=== PATIENT | female | born 1970 | race Caucasian/White ===

== ENCOUNTER → 2019-10-06 | Outpatient (CLI) | payer SELFPAY | END | disposition home or self-care (01) | LOC: LABWHC1 10:07 | PROVIDERS: ATTEND Internal Medicine Interventional Cardiology | DX: Z11.59 Encounter for screening for other viral diseases (principal) | CPT/HCPCS: 87635 ==

== ENCOUNTER → 2019-10-11 | Day surgery (SDC) | payer SELFPAY ==
[2019-10-10 10:08] VITALS: BMI 57.4
[~2019-10-11] MED LIST: ALPRAZolam 0.25 MG TAB PO PRN; ALPRAZolam 0.5 MG TAB PO PRN; ASPIRIN 325 MG TAB PO ONE; ATORVASTATIN 80 MG TAB PO ONE; FUROSEMIDE 40 MG TAB PO SCH; IOPAMIDOL-370 125ML BTL INJ ONE; LIDOCAINE 1% INJ 10MG/ML (20 ML MDV) SQ ONE; LOSARTAN 50 MG TAB PO SCH; METOPROLOL TARTRATE 50 MG TAB PO SCH; MIDAZOLAM 2 MG/2 ML VIAL IVP ONE; NITROGLYCERIN SL TABS 0.4 MG TAB SUBLINGUAL ONE; NITROGLYCERIN SL TABS 0.4 MG TAB SUBLINGUAL PRN; PANTOPRAZOLE 40 MG TABLET PO SCH; POTASSIUM CHLORIDE ER 20 MEQ TAB.ER PO SCH; RX INFO: IV CONTRAST WAS GIVEN 1 EACH MISC MISCELLANE PRN; SODIUM CHLORIDE 0.9% 1,000 ML IV SCH; SODIUM CHLORIDE 0.9% 1,000 ML in EMPTY BAG 1 BAG IV ONE; SPIRONOLACTONE 25 MG TAB PO SCH; VERAPAMIL SYRINGE (5 MG/10 ML) INTRAARTER ONE; fentaNYL (PF) 50 MCG/ML 2 ML AMP IVP ONE
[2019-10-11 11:46] VITALS: RESP 18; TEMP 98.2
[2019-10-11 11:49] LABS: Calcium 10.2 mg/dL (8.4-10.2); Potassium 4.4 mmol/L (3.5-5.1)
[2019-10-11 12:14] LABS: Anisocytosis Slight; HCT 50.1 % (34.0-46.0); HGB 15.3 gm/dL (11.4-16.0); Hypochromasia Marked; MCH 25.4 pg (25.0-35.0); MCHC 30.5 g/dL (31.0-37.0); MCV 83.5 fL (80.0-100.0); Mean Platelet Volume 9.3; Platelet Count 263 k/uL (150-450); RDW 16.9 % (11.5-15.5); WBC 6.8 k/uL (3.8-10.6)
[2019-10-11 13:21] LABS: Band Neutrophils % 2 %; Eosinophils # (M) 0.14 k/uL (0-0.7); Lymphocytes # (M) 2.11 k/uL (1.0-4.8); Neutrophils % (M) 62 %; Nucleated Red Blood Cells 0 /100 WBC (0-0); Total Cells Counted 100
--- NOTE | 2019-10-11 13:53 | CC ---
CARDIAC CATHETERIZATION REPORT Mrs Finch is a 48-year-old female who has not followed with a physician in the past, was seen at [facility] recently with symptoms of progressive dyspnea, was noted to have a cardiomyopathy in atrial fibrillation of unknown duration. She was treated medically with some improvement in her symptoms and she had a stress test that revealed a partially reversible inferior wall defect. In view of that, recommendation made regarding cardiac catheterization. The procedures, risks, and complication were discussed with the patient, who was in full understanding and agreement. PROCEDURE: Patient was brought to label coder in a fasting semi-sedated state after receiving fentanyl and Benadryl and achieving moderate conscious sedated state. Using Xylocaine anesthesia and Seldinger technique, a 6-Swedish sheath was introduced in the right radial artery. Selective right and left coronary angiography performed using 5-Swedish 3.5 bend right and left Fred catheter, multiple views of the coronary artery including hemiaxial views were obtained. Following that 5-Swedish tight pigtail catheter induced in the left ventricle and a 30-degree BECKMAN view of the left ventricle was obtained. Following that, catheter and sheath were removed. Hemostasis was obtained with deployment of a TR band. There was no immediate complication. Of note, the patient received 5000 units of intravenous heparin as well as intra-arterial verapamil. FINDINGS: LEFT MAIN: This is a large-sized vessel, bifurcating into left circumflex, left anterior descending artery. Left main coronary artery has no evidence of high-grade stenosis. LEFT ANTERIOR DESCENDING ARTERY: This is a large-sized vessel, reaching toward the apex with a wraparound apex segment, giving rise to a moderately sized diagonal branch in the proximal segment. The left anterior descending artery as well as branches have no evidence of obstructive coronary artery disease. LEFT CIRCUMFLEX: This is a nondominant vessel, large in caliber, giving rise to a large proximal obtuse marginal branch. The left circumflex as well as branches have no evidence of obstructive coronary artery disease. RIGHT CORONARY ARTERY: This is a dominant vessel, large in caliber, bifurcating distally into PDA and posterolateral segment and branches. The right coronary artery as well as branches have no evidence of obstructive coronary artery disease. LEFT VENTRICULOGRAM: Left ventriculogram was performed in 30-degree BECKMAN view and revealed a normal left ventricular size with global hypokinesis and arrhythmia-induced mitral regurgitation. Ejection fraction is estimated at 40%-45%. HEMODYNAMICS: There was no gradient across the aortic valve. The left ventricular end- diastolic pressure javed 12-16 mmHg. CONCLUSION: 1. Normal coronary arteries. 2. Mildly to moderately impaired left ventricular systolic function. RECOMMENDATION: The findings are consistent with nonischemic cardiomyopathy. At this time, I will maximize her medical regimen and evaluate her for the possibility of restoring sinus mechanism. Those findings and recommendation were discussed with the patient and her family and they are in full understanding and agreement. Duration of procedure is 17 minutes. ARIANNA / RASHELN: [id number] /
[2019-10-12 07:34] VITALS: BP 156/113; PULSE 86
== END | disposition home or self-care (01) ==
LOC: CATHCVL 11:10
PROVIDERS: ATTEND Internal Medicine Interventional Cardiology
DX: I42.9 Cardiomyopathy, unspecified (principal); I48.11 Longstanding persistent atrial fibrillation; I10 Essential (primary) hypertension; R06.00 Dyspnea, unspecified; R60.0 Localized edema; Z87.891 Personal history of nicotine dependence; Z90.49 Acquired absence of other specified parts of digestive tract; Z98.890 Other specified postprocedural states; Z79.01 Long term (current) use of anticoagulants; Z79.899 Other long term (current) drug therapy; Z88.8 Allergy status to other drugs, medicaments and biological substances
CPT/HCPCS: 93458; 80048; 85025; 81025; C1769; C1894; J2250; J2001; J3010; J1644; Q9967

== ENCOUNTER → 2019-10-24 | Outpatient (CLI) | payer SELFPAY | END | disposition home or self-care (01) | LOC: LABWHC1 12:56 | PROVIDERS: ATTEND Internal Medicine Interventional Cardiology | DX: Z53.9 Procedure and treatment not carried out, unspecified reason (principal) ==

== ENCOUNTER 2021-03-10 23:30 | Emergency (ER) | payer OTHER ==
[2021-03-10 23:36] VITALS: RESP 18; TEMP 97.2
[2021-03-11] MEDS ORDERED: FLECAINIDE 50 MG TAB PO ONE (00:02)
--- NOTE | 2021-03-11 00:03 | ED ---
Arrhythmia/Palpitations HPI - General Chief Complaint: Arrhythmia/Palpitations Stated Complaint: Afib Time Seen by Provider: 03/10/21 23:52 Source: family Mode of arrival: wheelchair - History of Present Illness Initial Comments: This patient is a 50-year-old woman with history of atrial fibrillation who presents to be evaluated for an elevated heart rate. Patient states that she has been under a lot of stress or approximately past 2 weeks. She states that her had she is having a lot of emotional stress. Tonight her heart rate was elevated. She denies having other associated symptoms, no chest pain, dyspnea, diaphoresis, nausea or vomiting. She states that when family member found out about the elevated heart rate family member brought her to be seen. MD Complaint: rapid heart beat, palpitations -: hour(s) Context: occurred during rest Arrhythmia History: atrial fibrillation - Related Data Home Medications Medication Instructions Recorded Confirmed Furosemide [Lasix] 40 mg PO DAILY 10/10/19 10/11/19 Losartan Potassium [Cozaar] 50 mg PO BID 10/10/19 10/11/19 Metoprolol Tartrate [Lopressor] 100 mg PO BID 10/10/19 10/11/19 Omeprazole 20 mg PO DAILY 10/10/19 10/11/19 Potassium Chloride [Klor-Con 20] 20 meq PO DAILY 10/10/19 10/11/19 Rivaroxaban [Xarelto] 20 mg PO DAILY 10/10/19 10/11/19 Spironolactone [Aldactone] 25 mg PO DAILY 10/10/19 10/11/19 Allergies Allergy/AdvReac Type Severity Reaction Status Date / Time diphenhydramine Allergy Swelling Verified 03/10/21 23:36 [From Maddy] Review of Systems ROS Statement: Those systems with pertinent positive or pertinent negative responses have been documented in the HPI. ROS Other: All systems not noted in ROS Statement are negative. Constitutional: Denies: fever, chills Respiratory: Denies: cough, dyspnea Cardiovascular: Reports: palpitations. Denies: chest pain, orthopnea, edema Gastrointestinal: Denies: abdominal pain, vomiting, diarrhea Genitourinary: Denies: dysuria, hematuria Musculoskeletal: Denies: back pain Skin: Denies: rash Neurological: Denies: headache, weakness, numbness Past Medical History Past Medical History: Atrial Fibrillation, Heart Failure, GERD/Reflux, Hyperte nsion History of Any Multi-Drug Resistant Organisms: None Reported Past Surgical History: Section, Cholecystectomy Past Anesthesia/Blood Transfusion Reactions: No Reported Reaction Past Psychological History: No Psychological Hx Reported Smoking Status: Never smoker Past Alcohol Use History: None Reported Past Drug Use History: None Reported - Past Family History Mother Family Medical History: No Reported History General Exam General appearance: alert, in no apparent distress Head exam: Present: atraumatic, normocephalic Eye exam: Present: normal appearance. Absent: scleral icterus, conjunctival injection ENT exam: Present: normal oropharynx Neck exam: Present: normal inspection Respiratory exam: Present: normal lung sounds bilaterally. Absent: respiratory distress, wheezes, rales, rhonchi, stridor Cardiovascular Exam: Present: tachycardia, irregular rhythm, normal heart sounds. Absent: systolic murmur, diastolic murmur, rubs, gallop GI/Abdominal exam: Present: soft. Absent: distended, tenderness, guarding, rebound, rigid, mass Extremities exam: Present: normal inspection, normal capillary refill. Absent: pedal edema, calf tenderness Back exam: Present: normal inspection. Absent: CVA tenderness (R), CVA tenderness (L) Neurological exam: Present: alert Skin exam: Present: warm, dry, intact, normal color. Absent: rash Course Vital Signs 03/10/21 03/11/21 23:34 00:58 Temperature 97.2 F L Pulse Rate 72 Pulse Rate [ 103 H Director Graphics ] Respiratory 18 Rate Blood Pressure 140/90 O2 Sat by Pulse 97 Oximetry EKG Findings - EKG Comments: EKG Findings:: Possible old septal infarct. Low voltage QRS complex. - EKG Results: EKG: normal ST/T - Dysrhythmias: Supraventricular dysrhythmia: atrial fibrillation (With rate approximately 121 bpm) - Blocks, [place], Hypertrophy, ST Abn: QRS axis and voltage: left axis deviation (-30 to -90) Medical Decision Making - Medical Decision Making Patient's 50-year-old woman with history of atrial fibrillation that is usually controlled with flecainide. I did give additional dose of Jigna denied here. The patient does maintain that she is still symptom-free and would like to go home. She remains in atrial fibrillation with rate from the 100s to 121. Would like to go home. Discussed the appropriate further care and follow-up as well as return parameters. - Lab Data Result diagrams: 03/11/21 00:36 03/11/21 00:36 Lab Results 03/11/21 03/11/21 03/11/21 Range/Units 00:36 00:36 00:36 WBC 6.9 (3.8-10.6) k/uL RBC 5.37 (3.80-5.40) m/uL Hgb 16.2 H (11.4-16.0) gm/dL Hct 46.4 H (34.0-46.0) % MCV 86.4 (80.0-100.0) fL MCH 30.2 (25.0-35.0) pg MCHC 35.0 (31.0-37.0) g/dL RDW 13.0 (11.5-15.5) % Plt Count 162 (150-450) k/uL MPV 10.0 Neutrophils % 52 % Lymphocytes % 38 % Monocytes % 4 % Eosinophils % 4 % Basophils % 1 % Neutrophils # 3.6 (1.3-7.7) k/uL Lymphocytes # 2.6 (1.0-4.8) k/uL Monocytes # 0.3 (0-1.0) k/uL Eosinophils # 0.3 (0-0.7) k/uL Basophils # 0.1 (0-0.2) k/uL PT 13.5 H (9.0-12.0) sec INR 1.3 H (<1.2) APTT 23.2 (22.0-30.0) sec Sodium 138 (137-145) mmol/L Potassium 3.8 (3.5-5.1) mmol/L Chloride 106 (98-107) mmol/L Carbon Dioxide 21 L (22-30) mmol/L Anion Gap 11 mmol/L BUN 18 H (7-17) mg/dL Creatinine 0.98 (0.52-1.04) mg/dL Est GFR (CKD-EPI)AfAm 77 (>60 ml/min/1.73 sqM) Est GFR (CKD-EPI)NonAf 67 (>60 ml/min/1.73 sqM) Glucose 134 H (74-99) mg/dL Calcium 9.6 (8.4-10.2) mg/dL Magnesium 1.6 (1.6-2.3) mg/dL Total Bilirubin 0.8 (0.2-1.3) mg/dL AST 39 H (14-36) U/L ALT 34 (4-34) U/L Alkaline Phosphatase 68 (38-126) U/L Troponin I (0.000-0.034) ng/mL Total Protein 7.0 (6.3-8.2) g/dL Albumin 4.1 (3.5-5.0) g/dL 03/11/21 Range/Units 00:36 WBC (3.8-10.6) k/uL RBC (3.80-5.40) m/uL Hgb (11.4-16.0) gm/dL Hct (34.0-46.0) % MCV (80.0-100.0) fL MCH (25.0-35.0) pg MCHC (31.0-37.0) g/dL RDW (11.5-15.5) % Plt Count (150-450) k/uL MPV Neutrophils % % Lymphocytes % % Monocytes % % Eosinophils % % Basophils % % Neutrophils # (1.3-7.7) k/uL Lymphocytes # (1.0-4.8) k/uL Monocytes # (0-1.0) k/uL Eosinophils # (0-0.7) k/uL Basophils # (0-0.2) k/uL PT (9.0-12.0) sec INR (<1.2) APTT (22.0-30.0) sec Sodium (137-145) mmol/L Potassium (3.5-5.1) mmol/L Chloride (98-107) mmol/L Carbon Dioxide (22-30) mmol/L Anion Gap mmol/L BUN (7-17) mg/dL Creatinine (0.52-1.04) mg/dL Est GFR (CKD-EPI)AfAm (>60 ml/min/1.73 sqM) Est GFR (CKD-EPI)NonAf (>60 ml/min/1.73 sqM) Glucose (74-99) mg/dL Calcium (8.4-10.2) mg/dL Magnesium (1.6-2.3) mg/dL Total Bilirubin (0.2-1.3) mg/dL AST (14-36) U/L ALT (4-34) U/L Alkaline Phosphatase (38-126) U/L Troponin I <0.012 (0.000-0.034) ng/mL Total Protein (6.3-8.2) g/dL Albumin (3.5-5.0) g/dL Disposition Clinical Impression: Atrial fibrillation Disposition: HOME SELF-CARE Condition: Good Instructions (If sedation given, give patient instructions): A-fib (Atrial Fibrillation) (DC) Is patient prescribed a controlled substance at d/c from ED?: No Referrals: Yeison Boone MD [STAFF PHYSICIAN] - 1-2 days
[2021-03-11 00:45] LABS: Basophils # (A) 0.1 k/uL (0-0.2); Basophils % (A) 1 %; Eosinophils # (A) 0.3 k/uL (0-0.7); Eosinophils % (A) 4 %; HCT 46.4 % (34.0-46.0); HGB 16.2 gm/dL (11.4-16.0); Lymphocytes # (A) 2.6 k/uL (1.0-4.8); Lymphocytes % (A) 38 %; MCH 30.2 pg (25.0-35.0); MCV 86.4 fL (80.0-100.0); Monocytes # (A) 0.3 k/uL (0-1.0); Monocytes % (A) 4 %; Neutrophils # (A) 3.6 k/uL (1.3-7.7); Neutrophils % (A) 52 %; Platelet Count 162 k/uL (150-450); RBC 5.37 m/uL (3.80-5.40); WBC 6.9 k/uL (3.8-10.6)
[2021-03-11 00:59] LABS: INR 1.3 (<1.2); Partial Thromboplastin Time 23.2 sec (22.0-30.0); Prothrombin Time 13.5 sec (9.0-12.0)
--- NOTE | 2021-03-11 01:01 | XR ---
EXAMINATION TYPE: XR chest 1V portable DATE OF EXAM: 03/11/2021 COMPARISON: NONE HISTORY: Dysrhythmia TECHNIQUE: Single view FINDINGS: Heart and mediastinum are normal. Lungs are clear. Diaphragm is normal. Bony thorax is inta ct. There are chest leads. IMPRESSION: Normal chest
[2021-03-11 01:09] LABS: Albumin 4.1 g/dL (3.5-5.0); Calcium 9.6 mg/dL (8.4-10.2); Magnesium 1.6 mg/dL (1.6-2.3); Total Bilirubin 0.8 mg/dL (0.2-1.3)
[2021-03-11 01:13] LABS: Potassium 3.8 mmol/L (3.5-5.1)
[2021-03-11] MEDS ORDERED: METOPROLOL TARTRATE 50 MG TAB PO STA (01:24)
[2021-03-11 02:38] VITALS: BP 111/80; PULSE 106
== END 2021-03-11 02:30 | disposition home or self-care (01) ==
LOC: EC 23:30
DX: I48.91 Unspecified atrial fibrillation (principal); I11.0 Hypertensive heart disease with heart failure; I50.9 Heart failure, unspecified; K21.9 Gastro-esophageal reflux disease without esophagitis; Z88.8 Allergy status to other drugs, medicaments and biological substances; Z79.899 Other long term (current) drug therapy
CPT/HCPCS: 36415; 71045; 80053; 83735; 84484; 85025; 85610; 85730; 93005; 99285